=== PATIENT | female | born 1975 | race Caucasian/White ===

== ENCOUNTER 2017-06-12 10:30 | Outpatient (CLI) | payer MEDICAID ==
[2017-06-12 12:58] LABS: BUN - BLOOD UREA NITROGEN 12 mg/dL (6-20); CARBON DIOXIDE - CO2 28 mmol/L (21-32); CHLORIDE 103 mmol/L (101-111); CREATININE 0.6 mg/dL (0.4-1.0); GFR - MDRD 109 (>89); GLUCOSE 110 mg/dL (70-100); POTASSIUM 4.1 mmol/L (3.5-5.0); SODIUM 139 mmol/L (135-145)
[2017-06-12 13:24] LABS: HEMOGLOBIN A1C 0.57 g/dL
== END 2017-06-12 10:31 | disposition home or self-care (01) ==
LOC: LAB.WCP 10:30
PROVIDERS: ATTEND Family Medicine
DX: R73.02 Impaired glucose tolerance (oral) (principal)
CPT/HCPCS: 36415; 80048; 83036; 84443

== ENCOUNTER 2018-11-18 16:29 | Outpatient (CLI) | payer OTHER ==
--- NOTE | 2018-11-19 08:22 | Mammography Report ---
Reason: SCREENING MAMMO Procedure Date: 11/18/2018 Accession Number: [id number] / [id number] Procedure: MATTHIAS - Screening Mammo w/Willi CPT Code: FULL RESULT: EXAM: Screening Mammo w/Willi DATE: 11/18/2018 5:16 PM CLINICAL HISTORY: Screening encounter. Family history of breast cancer in the mother at age 68. TECHNIQUE: Bilateral CC, laterally exaggerated CC, MLO views were obtained. COMPARISON: Baseline mammogram. FINDINGS: The breasts demonstrate diffuse fatty replacement bilaterally. In the right breast at the 6:00 position 7.3 cm deep to the nipple is a gently lobulated well-circumscribed isodense 1.1 cm nodule which requires focused right breast ultrasound for additional characterization. A nodule in the left lower inner breast demonstrates a semilunar shape with fatty hilum on craniocaudal image 14 and MLO image 45 consistent with a typically benign intramammary lymph node. No suspicious masses, clustered microcalcifications, or regions of architectural distortion are identified in the left breast. IMPRESSION: Incomplete examination RECOMMENDATION: Incomplete evaluation requiring focused right breast ultrasound evaluation as described. BIRADS CATEGORY 0: Incomplete examination STANDARD QUALIFYING STATEMENTS: 1. This examination was not reviewed with the aid of Computer-Aided Detection (CAD). 2. A negative or benign imaging report should not preclude biopsy if clinically suspicious findings are present. 3. Dense breasts may obscure an underlying neoplasm. 4. This examination was reviewed with the aid of 3D breast imaging (tomosynthesis).
== END 2018-11-18 16:30 | disposition home or self-care (01) ==
LOC: DI 16:29
DX: Z12.31 Encounter for screening mammogram for malignant neoplasm of breast (principal); R92.8 Other abnormal and inconclusive findings on diagnostic imaging of breast; Z80.3 Family history of malignant neoplasm of breast
CPT/HCPCS: 77063; 77067

== ENCOUNTER 2018-11-19 08:45 | Outpatient (CLI) | payer OTHER ==
[2018-11-19 13:27] LABS: BASOPHILS # (AUTO) 0.1 10^3/uL (0.0-0.1); BASOPHILS % (AUTO) 1.1 %; EOSINOPHILS # (AUTO) 0.5 10^3/uL (0.0-0.7); EOSINOPHILS % (AUTO) 4.2 %; HGB - HEMOGLOBIN 14.4 g/dL (12.0-16.0); LYMPHOCYTES # (AUTO) 2.2 10^3/uL (1.5-3.5); LYMPHOCYTES % (AUTO) 19.8 %; MEAN CORPUSCULAR HEMOGLOBIN 31.2 pg (27.0-31.0); MEAN CORPUSCULAR HGB CONC 33.3 g/dL (32.0-36.0); MEAN CORPUSCULAR VOLUME 93.4 fL (81.0-99.0); MEAN PLATELET VOLUME 7.7 fL (7.9-10.8); MONOCYTES # (AUTO) 0.7 10^3/uL (0.0-1.0); MONOCYTES % (AUTO) 6.5 %; NEUTROPHILS # (AUTO) 7.5 10^3/uL (1.5-6.6); NEUTROPHILS % (AUTO) 68.4 %; PLT - PLATELET COUNT 371 10^3/uL (130-450); RED BLOOD COUNT 4.63 10^6/uL (4.20-5.40)
[2018-11-19 14:17] LABS: ALBUMIN 3.6 g/dL (3.2-5.5); ALKALINE PHOSPHATASE 70 IU/L (42-121); ALT ALANINE AMINOTRANSFERASE 28 IU/L (10-60); AST ASPARTATE AMINOTRANSFERASE 25 IU/L (10-42); BILIRUBIN,TOTAL 0.4 mg/dL (0.2-1.0); BUN - BLOOD UREA NITROGEN 8 mg/dL (6-20); CARBON DIOXIDE - CO2 27 mmol/L (21-32); CHLORIDE 102 mmol/L (101-111); CHOL/HDL RATIO 6.3 (<4.4); CHOLESTEROL 225 mg/dL; CREATININE 0.6 mg/dL (0.4-1.0); GFR - MDRD 108 (>89); GLUCOSE 111 mg/dL (70-100); HDL CHOLESTEROL 36 mg/dL; LDL CHOLESTEROL,CALCULATED 168 mg/dL; LDL/HDL RATIO 4.7 (<4.4); SODIUM 137 mmol/L (135-145); TOTAL PROTEIN 7.3 g/dL (6.7-8.2); VLDL CHOLESTEROL 21 mg/dL
[2018-11-19 15:28] LABS: HB2 TOTAL 15.5 g/dL; HEMOGLOBIN A1C 0.61 g/dL; HEMOGLOBIN A1C % 5.8 % (4.6-6.2)
== END 2018-11-19 23:59 | disposition home or self-care (01) ==
LOC: LAB.WCP 08:45
PROVIDERS: ATTEND Nurse Practitioner
DX: R73.02 Impaired glucose tolerance (oral) (principal); Z00.00 Encounter for general adult medical examination without abnormal findings; E78.5 Hyperlipidemia, unspecified; M35.3 Polymyalgia rheumatica
CPT/HCPCS: 36415; 80053; 80061; 83036; 83721; 84443; 85025; 85651; 86140

== ENCOUNTER 2018-12-21 08:51 | Outpatient (CLI) | payer OTHER ==
--- NOTE | 2018-12-21 10:22 | Ultrasound Report ---
Reason: ABN MAMMO - RT BREAST SPEC VIEW US Procedure Date: 12/21/2018 Accession Number: [id number] / [id number] Procedure: US - Breast Unilateral Limited CPT Code: FULL RESULT: EXAM: Breast Unilateral Limited DATE: 12/21/2018 9:48 AM CLINICAL HISTORY: ABN MAMMO - RT BREAST SPEC VIEW US COMPARISON: 11/18/2018. TECHNIQUE: Targeted ultrasound was performed of the right breast in the area of clinical concern at 6 o'clock and 4 cm distance from the nipple. Color Doppler was employed as appropriate. FINDINGS: Corresponding to the mammographic finding is a 1.1 cm cluster of typically benign appearing cysts which are wider than tall, demonstrate increased through transmission and no solid component or internal vascularity by color Doppler, concordant finding. IMPRESSION: Benign findings RECOMMENDATION: Recommend routine annual Screening mammography unless otherwise clinically indicated. BIRADS CATEGORY 2: Benign findings RADIA
== END 2018-12-21 08:52 | disposition home or self-care (01) ==
LOC: DI 08:51
PROVIDERS: ATTEND Nurse Practitioner
DX: N60.11 Diffuse cystic mastopathy of right breast (principal)
CPT/HCPCS: 76642

== ENCOUNTER 2020-05-04 10:35 | Outpatient (CLI) | payer MEDICAID ==
[2020-05-04 11:49] VITALS: BP 148/92
--- NOTE | 2020-05-04 11:49 | SLEEP CARE CONSULTATION ---
Information from patient questionnaire entered by Prerna Vang. I have reviewed and concur with the information entered by Prerna Vang. This document represents the service I personally performed and the decisions made by me, Janessa Davis ARNP. History of Present Illness Service Date and Time: 05/04/2020 1035 Reason for Visit: New patient, -[facility] Chief Complaint: reports: Insomnia, Unrefreshed sleep, Snoring, Excessive daytime sleepiness, Observed pauses in breathing, Fatigue, Frequent awakenings at night Duration of Symptoms: 3 plus years Usual bedtime: about 11 pm Time it takes to fall asleep: about 1 hour Snores at night: Yes Observed to quit breathing while asleep: Yes Sleeps alone due to snoring: No (n/a) Number of times waking at night: 3-4 Reasons for waking at night: reports: Choking, Snoring, Gasping for air, Pain, Bathroom Toss, Turn, or Twitch while sleeping: Yes Recalls having dreams: Yes Usually gets out of bed at: 6-7 am Feels refreshed in the morning: No Morning headache: No Sleepy or fatigued during the day: Yes Ever fallen asleep while driving: No Takes day naps: No Dreams during day naps: No Prior sleep studies: Yes Year and Where: 2005 in [place], [place] and 2008 - Home study with [facility] [employer] Additional HPI information: Patient states she could not get her CPAP machine from [facility], it was a hassle and ultimately was unable to start treatment of her CHIOMA after being diagnosed by a HST in 2016. She then went through a divorce and did not have motivation to continue to try obtaining the CPAP needed. She recently decided to improve her health and has seen her PCP. She was referred for a nutritional consult for education and help with diet/nutrition for weight loss. - Parasomnia Symptoms Ever been unable to move upon waking from sleep: No Ever felt weak in the knees when startled or emotional: No Bothered by creepy, crawly, restless sensations in legs: No Problems with memory or concentration: Yes Subjective Initial [place] Sleepiness Scale score: 19 (in 2016) Current [place] Sleepiness Scale score: 18 Past Medical History Past Medical History: reports: Claustrophobia, Anxiety, Asthma. 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 Patient is and lives in [place]. Have you smoked in the past 12 months: Yes Cigarettes per day (20/pack): 4 (trying to quit) Years of smokin Smoking Pack Years: 4.0 Alcohol use: Yes Alcohol amount and frequency: 2 glasses on the weekends Caffeine use: Yes Caffeine amount and frequency: 5 shot espresso Family History Family history of sleep disordered breathing: Yes (mother) Family Hx Sleep Apnea: Mother: Snoring, Sleep apnea - Treated, Father: Snoring, Sibling: Snoring Allergies and Home Medications Known drug allergies: Yes (penicillins) Home medication list reviewed: Yes (advair, albuterol, occasional ibuprofen, tried CBD oil for hip joint pain) Review of Systems Review of systems same as previous: Yes (stomach ulcers, treated for bleeding ulcers in hospital 2 yrs ago) Weight gain over past 5 years: 150 Cardiovascular: reports: leg or foot swelling, have to sleep sitting up. denies: high blood pressure, palpitations, chest pain, irregular heart rate or pulse Respiratory: reports: shortness of breath, wheeze, sputum production, chronic cough Gastrointestinal: reports: abdominal pain. denies: heartburn, difficulty swallowing Urinary: reports: incontinence, frequency, urgency Neurological: reports: gait or balance problems. denies: headaches, seizure, head trauma, disorientation Psychiatric: reports: anxiety. denies: Attention Deficit Hyperactivity, depression, mood disorder Ear/Nose/Throat: reports: dry mouth/throat (gets better through the day), hoarseness, wisdom teeth removed. denies: nasal congestion, sinus problems, nose bleeds, injury to nose, tonsillectomy Endocrine: reports: sluggishness, too hot or cold, excessive thirst, increased appetite, increased urination, unexplained weakness. denies: thyroid disease, history of goiter Musculoskeletal: reports: joint pain, neck pain, back pain, joint swelling, muscle pain or cramping, mobility problems Immunologic: reports: rash, itching, allergies to food or environment, other (cats) Physical Exam Blood Pressure: 148/92 Cuff size: large Heart Rate: 92 O2 Saturation: 98 Height: 5 ft 2 in Weight: 344 lb 3.2 oz Body Mass Index: 62.9 BMI Classification: Morbidly Obese Neck circumference: 18.5 HEENT: No craniofacial malformation Nostrils: patent to airflow Turbinates: swollen Septum: midline Mouth and throat: normal Soft palate: normal Hard palate: normal Uvula: normal Uvula visualization: 25% Mallampati Class III Tongue: enlarged in size with teeth bragg on lateral edges Tonsils: 2+ Chin and jaw: normal size and position Neck: normal w/o lymphadenopathy or thyromegaly Heart: regular rate and rhythm Lungs: clear bilaterally Impression and Plan 1. Obstructive Sleep Apnea-Hypopnea Syndrome, as previously diagnosed. She has not followed through with CPAP treatment in 2016 because she was unable to obtain CPAP machine or supplies and then due to personal stressors did not pursue treatment. She continues to have loud and irregular snoring, observed cessation of breath while asleep, gasping or choking in sleep, frequent awakening during the night, unrefreshed sleep, cognitive impairment is mostly seen with not remembering simple words, and excessive daytime sleepiness. Obesit y/excess weight is a common predisposing factor for obstructive sleep apnea- hypopnea syndrome. 2. Morbid obesity. Patient has gained 150 pound of weight in last 5 years. Currently patients BMI is 55.1 obesity class . Obesity increases the risk of apnea, CPAP pressure requirements and overall health risks especially cardiovascular and diabetes. Thus patient is advised to continue with her renew ed efforts to lose weight. Her referral for a nutrition consultation can be helpful in achieving optimal weight loss goals. The BMI chart was reviewed. Patient encouraged to discuss their weight loss goals with their PCP. Her January 2016 HST showed AHI 7.1 with ayala oxygen of 77%. Previous [place] results was 19. She did not follow through with treatment in 2016 and we will need to obtain another sleep study to verify diagnosis and satisfy insurance requirements. The pathophysiology of obstructive sleep apnea-hypopnea syndrome was discussed with the patient and health risks of cardiovascular and cerebrovascular disease if not treated. AASM brochure for obstructive sleep apnea-hypopnea syndrome given and reviewed. Risks of drowsy driving discussed in detail and patient advised to avoid long distance driving and to snout puller at the first sign of drowsiness. Patient agreed to plan. * Schedule HST polysomnography and return in 1-2 weeks after the study to discuss result and initiate therapy. * Avoid long distance driving or driving when feeling sleepy. * Avoid alcohol, sedative and muscle relaxant around bedtime. * Continue efforts to lose weight. * Review instructions provided by trained office staff on how to prepare for the sleep study. * Return for follow-up after sleep study completed. Visit Type: In Office Provider Statement: I spent 100% of the Face to Face Visit with the patient with greater than 50% spent counseling the patient and coordination of care.
== END 2020-05-04 10:36 | disposition home or self-care (01) ==
LOC: SC 10:35
PROVIDERS: ATTEND Nurse Practitioner Family
DX: G47.33 Obstructive sleep apnea (adult) (pediatric) (principal); E66.01 Morbid (severe) obesity due to excess calories; Z68.43 Body mass index [BMI] 50.0-59.9, adult
CPT/HCPCS: 99204; 99212

== ENCOUNTER 2020-06-01 11:13 | Outpatient (CLI) | payer MEDICAID ==
--- NOTE | 2020-06-01 11:46 | SLEEP CARE CONSULTATION ---
Information from patient questionnaire entered by Prerna Vang. I have reviewed and concur with the information entered by Prerna Vang. This document represents the service I personally performed and the decisions made by , Janessa Davis ARNP. History of Present Illness Service Date and Time: 06/01/2020 1113 Initial [place] Sleepiness Scale score: 19 (in 2016) Current [place] Sleepiness Scale score: 18 Additional HPI information: SONIA AC returns for follow up and results of the recently performed home sleep study. She was found to have moderate obstructive sleep apnea with an AHI of 21.6 and ayala oxygen saturation of 50%. Her supine AHI was 5.0 and her non-supine AHI was 27.2. I explained the pathophysiology behind obstructive sleep apnea. We then spent quite a bit of time discussing different treatment options. For mild obstructive sleep apnea, surgery and oral appliance are alternatives to nasal CPAP therapy but in moderate or severe cases, nasal CPAP is the most effective and reliable treatment. I reviewed the impact of weight changes on sleep apnea and strongly recommended losing weight. After some discussion, the patient opted to go with the nasal CPAP therapy. Nasal autoCPAP set at 4-15 cmH20 will be ordered with rationale explained. A manual titration study will be ordered if unable to find optimal pressure with office adjustments. I explained how CPAP machine works with sample devices [employer] Dreamstation and [employer] [id number] and what to expect when using the machine. Using CPAP every night in order to get used to it was emphasized. Patient advised to put CPAP mask on before getting into bed so as not to fall asleep without CPAP. To assist acclimation to CPAP use, it could also be used for a short time during day while reading or watching TV. The patient was in structed to call the CPAP supplier to discuss any mechanical problem that may occur. If the mask given is uncomfortable or is difficult to keep on through the night even with adjustment, contact the CPAP supplier as many will replace with another mask style if notified before 30 days. If snoring or perceives is not getting enough air or too much air from the machine, notify this office. AASM patient education PAP tips and Non Pap treatment pamphlets reviewed and given to patient. Patient counseled not drink alcohol less than 4 hours before bedtime as it can increase snoring and apnea. Patient was cautioned about risks of drowsy driving until sleepiness symptoms resolve. Patient denies drowsy driving. Sleep Study - Results Type of Sleep Study: Home sleep study Polysomnography/Home Sleep Study results: SLEEP TIME AND EFFICIENCY: The sleep study recording began at 11:17:43 PM and ended at 06:38:12 AM. Total recording time was 440.5 minutes. The total sleep time was 383.0 minutes. The sleep efficiency was 86.9 percent. The patient spent 96.2 minutes supine, and spent 286.8 minutes non-supine. The patients own estimate of sleep time was 7.30 hours. RESPIRATORY DATA: The AHI in this report is indexed to sleep time based on actigraphy. The AASM defines this as VADIM. The AHI on this type 3 Home Sleep Study may understate the AHI determined on a type 1 or 2 study, since EEG is not monitored resulting in the inability to score non-desaturating hypopneas. Based on 4% Calculation: The AHI4% calculation of 21.6 per hour of recording time was based on a total of 46 scored apneas and 92 scored hypopneas with 4% desaturations. Supine AHI4%: 5.0 per hour. Non-supine AHI4%: 27.2 per hour. Oxygen Summary: Patient's baseline O2 saturation was 90.1 %. The patient spent 265.9 minutes at an oxygen saturation less than 90%, and 76.5 minutes less than 85%. The desaturation index was 21.0 events per hour sleep time. The lowest saturation was 50.0 %. SNORING: The percent of the study time spent snoring was 1.6 %. The Snoring Count was 208 . The Snoring Index was PULSE RATE REVIEW: The mean heart rate was 85 beats per minute. The rate ranged from a low of 29 to a high of 240 beats per minute. DIAGNOSIS CODE: Moderate obstructive sleep apnea G47.33, occurring independently of sleep position. Moderate desaturations were noted. Allergies and Home Medications Drug allergies reviewed: Yes (penicillins) Home medication list reviewed: Yes (no changes) Review of Systems Review of systems same as previous: Yes (no changes) Physical Exam Heart Rate: 99 O2 Saturation: 95 Height: 5 ft 2 in Weight: 342 lb Body Mass Index: 62.5 BMI Classification: Morbidly Obese Impression and Plan 1. Obstructive Sleep Apnea-Hypopnea Syndrome, moderate, with lowest oxygen saturation of 50% and baseline of 90.1% His average AHI was 21.6 with supine AHI 5.0 and non-supine 27.2. Obviously this is the cause of the patients symptoms of unrefreshed sleep, snoring, frequent night awakenings, observed pauses of breathing while asleep, fatigue and excessive daytime sleepiness. Her AHI was worse non-supine. Positive pressure therapy could benefit her anxiety and asthma as well as reduce risk for hypertension, cardiac disease, cerebrovascular disease, diabetes and depression. As mentioned above, the patient will be started on nasal autoCPAP therapy with pressure set at 4-15 cmH2O. A manual titration study will be completed if unable to find optimal treatment pressure with office adjustments. Compliance guidelines also reviewed. A copy of compliance guidelines will be given for reference at check out. Because the apnea is more severe non-supine, I instructed her to avoid sleeping non-supine until able to start CPAP use. Patients current BMI is 62.9. Obesity increases the risk of apnea, CPAP pressure requirements and overall health risks es pecially cardiovascular and diabetes. Thus patient is advised to lose weight. * Nasal auto CPAP therapy, pressure at 4-15 cm H2O. * Attempt to lose weight. * Avoid alcohol consumption near bedtime. * Avoid non-supine sleep until using CPAP. * The patient is again cautioned about driving until sleepiness completely resolves. * Return one month after CPAP obtained. I will assess response to therapy and compliance at that time. Visit Type: In Office Time Spent with Patient (minutes): 16 Provider Statement: I spent 100% of the Face to Face Visit with the patient with greater than 50% spent counseling the patient and coordination of care.
== END 2020-06-01 11:14 | disposition home or self-care (01) ==
LOC: SC 11:13
PROVIDERS: ATTEND Nurse Practitioner Family
DX: G47.33 Obstructive sleep apnea (adult) (pediatric) (principal); E66.01 Morbid (severe) obesity due to excess calories; Z68.44 Body mass index [BMI] 60.0-69.9, adult
CPT/HCPCS: 99212; 99213

== ENCOUNTER 2021-04-05 17:40 | Emergency (ER) | payer MEDICAID ==
[2021-04-05] MEDS ORDERED: predniSONE 20 MG TABLET PO STA (18:15)
[2021-04-05] MEDS ORDERED: IPRATROPIUM/ALBUTEROL 3 ML NEB INH STA (18:15)
--- NOTE | 2021-04-05 18:25 | ED Physician Documentation ---
PD HPI DYSPNEA - Stated complaint Stated Complaint: SOA,CP - Chief complaint Chief Complaint: Resp - History obtained from History obtained from: Patient - History of Present Illness Timing - onset during: Rest Pain level max: 0 Pain level now: 0 Inciting event(s): No: Out of meds, URI, Allergic rxn/anaphylaxis, Exercise, Exposure (ie smoke), FB / choking, Immobilization/travel, Emotional event Worsened by: Exertion, Coughing Associated symptoms: Cough, Wheezing. No: Fever, Hemoptysis, Chest pain / discomfort, Palpitations, Diaphoresis, Bilateral edema, Unilateral edema, Anxiety Recently seen: Not recently seen - Additional information Additional information: Patient is a 45-year-old female with a longstanding history of asthma. She states that over the past 3 to 4 days she has had increased difficulty breathing. No fevers. No chills. Dry cough. She states her inhalers are not helping at home. Worse with exertion or coughing. Nothing makes it better Review of Systems Constitutional: denies: Fever, Chills Nose: denies: Rhinorrhea / runny nose, Congestion Throat: denies: Sore throat Respiratory: reports: Dyspnea, Cough, Wheezing. denies: Hemoptysis GI: denies: Abdominal Pain, Nausea, Vomiting, Diarrhea : denies: Dysuria, Frequency Skin: denies: Rash Musculoskeletal: denies: Neck pain, Back pain Neurologic: denies: Headache PD PAST MEDICAL HISTORY - Past Medical History Past Medical History: Yes Cardiovascular: None Respiratory: Asthma Endocrine/Autoimmune: None GI: None ASSISTANT CLINICAL DIRECTOR: None : None HEENT: None Psych: None Musculoskeletal: None Derm: None - Past Surgical History Past Surgical History: Yes General: Cholecystectomy - Present Medications Home Medications: Ambulatory Orders Medication Instructions Recorded Confirmed hydroCHLOROthiazide [Hydrodiuril] 12.5 mg PO DAILY 07/30/16 07/30/16 Pantoprazole [Protonix] 40 mg PO BID #120 tablet 07/31/16 Sucralfate 1 gm PO QID #120 tablet 07/31/16 Benzonatate [Tessalon Perle] 100 mg PO TID PRN #20 capsule 08/28/16 predniSONE [Prednisone] 40 mg PO DAILY 5 Days tablet 08/28/16 predniSONE [Deltasone] 10 mg PO [id number] #42 tab 04/05/21 - Allergies Allergies/Adverse Reactions: Allergies Allergy/AdvReac Type Severity Reaction Status Date / Time Penicillins AdvReac Nausea Verified 04/05/21 17:53 - Social History Does the pt smoke?: Yes Smoking Status: Current every day smoker Does the pt drink ETOH?: Yes ETOH Use: Wine Does the pt have substance abuse?: No - Immunizations Immunizations are current?: Yes PD ED PE NORMAL - Vitals Vital signs reviewed: Yes - General General: Alert and oriented X 3, No acute distress, Well developed/nourished - HEENT HEENT: PERRL, Moist mucous membranes - Neck Neck: Supple, no meningeal sign - Cardiac Cardiac: RRR, Strong equal pulses - Respiratory Respiratory: No respiratory distress, Other (Diminished breath sounds bilaterally, wheezing) - Abdomen Abdomen: Soft, Non tender, Non distended - Derm Derm: Warm and dry - Extremities Extremities: No calf tenderness / cord - Neuro Neuro: Alert and oriented X 3 - Psych Psych: Normal mood, Normal affect Results - Vitals Vitals: Vital Signs - 24 hr 04/05/21 04/05/21 04/05/21 17:49 18:03 18:41 Temperature 36.5 C Heart Rate 108 H 107 H 74 Respiratory 18 18 20 Rate Blood Pressure 155/80 H 142/101 H O2 Saturation 95 94 04/05/21 19:29 Temperature 36.8 C Heart Rate 100 Respiratory 18 Rate Blood Pressure 144/91 H O2 Saturation 99 Oxygen O2 Source Room air - Rads (name of study) Chest x-ray Radiology: Prelim report reviewed, EMP read contemporaneously, See rad report (Diffuse interstitial prominence with perihilar airway thickening and streaky bibasilar opacities. Findings may represent sequela of inflammatory or infectious process with viral etiology most likely. Reactive airway disease/asthma may have a similar appearance given reported history) PD MEDICAL DECISION MAKING - ED course Complexity details: reviewed results, re-evaluated patient, considered differential, d/w patient ED course: 45-year-old female with what appears to be an asthma exacerbation. No evidence of pneumonia on chest x-ray. Feels much better after steroids and nebulizer treatment. We will place her on a steroid taper for home. No indication for antibiotics. Patient is well-appearing, nontoxic. Afebrile. No hypoxia. No respiratory distress. Patient counseled regarding signs and symptoms for which I believe and urgent re-evaluation would be necessary. Patient with good understanding of and agreement to plan and is comfortable going home at this time This document was made in part using voice recognition software. While efforts are made to proofread this document, sound alike and grammatical errors may o ccur. Departure - Departure Disposition: Home, Self Care Clinical Impression: Asthma exacerbation Qualifiers: Asthma severity: unspecified severity Asthma persistence: unspecified Qualified Code(s): J45.901 - Unspecified asthma with (acute) exacerbation Condition: Good Instructions: ED Reactive Airway Disease Follow-Up: Yamileth Craig PA-C [Primary Care Provider] - As Needed Prescriptions: predniSONE [Deltasone] 10 mg PO [id number] #42 tab Comments: Use the steroids as prescribed. Continue your inhalers at home. Return if you worsen. Follow-up with your doctor for further care. You can also discuss with your doctor obtaining a nebulizer machine. Discharge Date/Time: 04/05/21 19:35
--- NOTE | 2021-04-05 18:44 | XRAY Report ---
PROCEDURE: Chest 2 View X-Ray INDICATIONS: cough TECHNIQUE: 2 view(s) of the chest. COMPARISON: None. FINDINGS: Surgical changes and devices: None. Lungs and pleura: Diffuse interstitial prominence. Streaky bibasilar opacities more pronounced on the left. Mild perihilar airway thickening. No focal consolidation. No pleural effusion or pneumothorax. Mediastinum: Mediastinal contours are normal. Heart size is normal. Bones and chest wall: No suspicious bony abnormalities. Soft tissues appear unremarkable. IMPRESSION: Diffuse interstitial prominence with perihilar airway thickening and streaky bibasilar o pacities. Findings may represent sequela of inflammatory or infectious process with viral etiology mo st likely. Reactive airway disease/asthma may have a similar appearance given reported history. Recommend follow-up chest radiograph 4-6 weeks after treatment to document resolution of findings and /or return to baseline exam. Reviewed by: Hermilo Marinelli MD on 04/05/2021 6:43 PM PDT Approved by: Hermilo Marinelli MD on 04/05/2021 6:43 PM PDT Station ID: [id number]
[2021-04-05 19:30] VITALS: BP 144/91
== END 2021-04-05 19:35 | disposition home or self-care (01) ==
LOC: ED 17:40
DX: J45.901 Unspecified asthma with (acute) exacerbation (principal); F17.200 Nicotine dependence, unspecified, uncomplicated
CPT/HCPCS: 71046; 94150; 94640; 94664; 99283; 99284; J7512

== ENCOUNTER 2021-09-03 10:52 | Outpatient (CLI) | payer MEDICAID ==
[2021-09-03 18:23] LABS: BASOPHILS # (AUTO) 0.1 10^3/uL (0.0-0.1); BASOPHILS % (AUTO) 0.7 %; EOSINOPHILS # (AUTO) 0.2 10^3/uL (0.0-0.7); HGB - HEMOGLOBIN 12.8 g/dL (12.0-16.0); LYMPHOCYTES # (AUTO) 2.3 10^3/uL (1.5-3.5); LYMPHOCYTES % (AUTO) 19.1 %; MEAN CORPUSCULAR HEMOGLOBIN 28.8 pg (27.0-31.0); MEAN CORPUSCULAR HGB CONC 29.8 g/dL (32.0-36.0); MEAN CORPUSCULAR VOLUME 96.6 fL (81.0-99.0); MEAN PLATELET VOLUME 9.8 fL (7.9-10.8); MONOCYTES # (AUTO) 0.6 10^3/uL (0.0-1.0); MONOCYTES % (AUTO) 4.5 %; NEUTROPHILS # (AUTO) 8.9 10^3/uL (1.5-6.6); NEUTROPHILS % (AUTO) 72.9 %; PLT - PLATELET COUNT 404 10^3/uL (130-450); RED BLOOD COUNT 4.45 10^6/uL (4.20-5.40); RED CELL DISTRIBUTION WIDTH 13.8 % (12.0-15.0); WHITE BLOOD COUNT 12.3 x10^3/uL (4.8-10.8)
[2021-09-03 18:38] LABS: CREATININE,URINE 142.9 mg/dL; MICROALBUM/CREATININE RATIO,UR 65.1 ug/mg (<30.0); MICROALBUMIN,URINE 9.3 mg/dL (0-300.0)
[2021-09-03 18:57] LABS: THYROID STIMULATING HORMONE 2.71 uIU/mL (0.34-5.60)
[2021-09-03 19:00] LABS: ALBUMIN 3.6 g/dL (3.2-5.5); ALBUMIN/GLOBULIN RATIO 0.9 (1.0-2.2); ALKALINE PHOSPHATASE 77 IU/L (42-121); ALT ALANINE AMINOTRANSFERASE 20 IU/L (10-60); AST ASPARTATE AMINOTRANSFERASE 18 IU/L (10-42); BILIRUBIN,TOTAL 0.4 mg/dL (0.2-1.0); BUN - BLOOD UREA NITROGEN 11 mg/dL (6-20); CALCIUM 9.2 mg/dL (8.5-10.3); CARBON DIOXIDE - CO2 29 mmol/L (21-32); CHLORIDE 102 mmol/L (101-111); CHOL/HDL RATIO 5.1 (<4.4); CHOLESTEROL 218 mg/dL; CREATININE 0.6 mg/dL (0.4-1.0); GFR - MDRD 107 (>89); GLUCOSE 140 mg/dL (70-100); HDL CHOLESTEROL 43 mg/dL; LDL CHOLESTEROL,CALCULATED 152 mg/dL; LDL/HDL RATIO 3.5 (<4.4); POTASSIUM 4.1 mmol/L (3.5-5.0); SODIUM 138 mmol/L (135-145); TOTAL PROTEIN 7.8 g/dL (6.7-8.2); TRIGLYCERIDES 113 mg/dL; VLDL CHOLESTEROL 23 mg/dL
[2021-09-03 20:25] LABS: BILIRUBIN,URINE NEGATIVE (NEGATIVE); GLUCOSE, URINE (UA) NEGATIVE (NEGATIVE); KETONES,URINE (UA) NEGATIVE (NEGATIVE); LEUKOCYTE ESTERASE, URINE NEGATIVE (NEGATIVE); NITRITE,URINE NEGATIVE (NEGATIVE); OCCULT BLOOD,URINE TRACE-INTA (NEGATIVE); PROTEIN,URINE NEGATIVE (NEGATIVE); UROBILINOGEN,URINE 0.2 (NORMAL) E.U./dL (NORMAL)
[2021-09-03 20:28] LABS: AMORPHOUS SEDIMENT,UR Rare /LPF; BACTERIA,URINE None Seen /HPF (None Seen); CLARITY,URINE HAZY (CLEAR); RBC,URINE None Seen /HPF (0-5); SQUAMOUS EPITHELIAL CELL,UR NONE SEEN (<= Few); WBC,URINE 0-3 /HPF (0-5)
[2021-09-03 21:36] LABS: ESTIMATED AVERAGE GLUCOSE 126 mg/dL (70-100)
== END 2021-09-03 23:59 | disposition home or self-care (01) ==
LOC: LAB.WCP 10:52
PROVIDERS: ATTEND Nurse Practitioner
DX: I10 Essential (primary) hypertension (principal); E78.5 Hyperlipidemia, unspecified; R73.9 Hyperglycemia, unspecified; R53.83 Other fatigue
CPT/HCPCS: 36415; 80053; 80061; 81001; 82043; 82570; 83036; 83721; 84443; 85025; 87086

== ENCOUNTER 2023-07-21 11:19 | Outpatient (CLI) | payer MEDICAID ==
[2023-07-21 18:02] LABS: BASOPHILS # (AUTO) 0.1 10^3/uL (0.0-0.1); BASOPHILS % (AUTO) 0.8 %; EOSINOPHILS # (AUTO) 0.2 10^3/uL (0.0-0.7); EOSINOPHILS % (AUTO) 1.6 %; HCT - HEMATOCRIT 38.8 % (37.0-47.0); HGB - HEMOGLOBIN 11.3 g/dL (12.0-16.0); LYMPHOCYTES # (AUTO) 2.5 10^3/uL (1.5-3.5); LYMPHOCYTES % (AUTO) 25.4 %; MEAN CORPUSCULAR HEMOGLOBIN 23.5 pg (27.0-31.0); MEAN CORPUSCULAR HGB CONC 29.1 g/dL (32.0-36.0); MEAN CORPUSCULAR VOLUME 80.7 fL (81.0-99.0); MEAN PLATELET VOLUME 9.4 fL (7.9-10.8); MONOCYTES # (AUTO) 0.6 10^3/uL (0.0-1.0); MONOCYTES % (AUTO) 6.6 %; NEUTROPHILS # (AUTO) 6.3 10^3/uL (1.5-6.6); NEUTROPHILS % (AUTO) 65.3 %; PLT - PLATELET COUNT 455 10^3/uL (130-450); RED BLOOD COUNT 4.81 10^6/uL (4.20-5.40); RED CELL DISTRIBUTION WIDTH 18.8 % (12.0-15.0); WHITE BLOOD COUNT 9.6 x10^3/uL (4.8-10.8)
[2023-07-21 19:02] LABS: ALBUMIN 4.2 g/dL (3.2-5.5); ALBUMIN/GLOBULIN RATIO 1.3 (1.0-2.2); ALKALINE PHOSPHATASE 97 IU/L (42-121); ALT ALANINE AMINOTRANSFERASE 16 IU/L (10-60); AST ASPARTATE AMINOTRANSFERASE 15 IU/L (10-42); BILIRUBIN,TOTAL 0.2 mg/dL (0.2-1.0); BUN - BLOOD UREA NITROGEN 10 mg/dL (6-20); CALCIUM 9.6 mg/dL (8.5-10.3); CARBON DIOXIDE - CO2 29 mmol/L (21-32); CHLORIDE 106 mmol/L (101-111); CHOLESTEROL 185 mg/dL; CREATININE 0.7 mg/dL (0.6-1.3); GFR - MDRD 89 (>89); GLUCOSE 81 mg/dL (74-104); HDL CHOLESTEROL 46 mg/dL; LDL CHOLESTEROL,CALCULATED 120 mg/dL; LDL/HDL RATIO 2.6 (<4.4); POTASSIUM 3.8 mmol/L (3.5-4.5); SODIUM 142 mmol/L (135-145); TOTAL PROTEIN 7.5 g/dL (6.4-8.9); TRIGLYCERIDES 95 mg/dL (48-352); VLDL CHOLESTEROL 19 mg/dL
[2023-07-21 19:17] LABS: THYROID STIMULATING HORMONE 1.81 uIU/mL (0.34-5.60)
[2023-07-21 20:02] LABS: ESTIMATED AVERAGE GLUCOSE 120 mg/dL (70-100); HEMOGLOBIN A1c% 5.8 % (4.27-6.07)
== END 2023-07-21 11:20 | disposition home or self-care (01) ==
LOC: LAB.N 11:19
PROVIDERS: ATTEND Nurse Practitioner
DX: I10 Essential (primary) hypertension (principal); E78.5 Hyperlipidemia, unspecified; E66.01 Morbid (severe) obesity due to excess calories; R73.03 Prediabetes
CPT/HCPCS: 36415; 80050; 80061; 83036; 83721

== ENCOUNTER 2023-07-29 14:20 | Outpatient (CLI) | payer MEDICAID ==
--- NOTE | 2023-07-31 14:32 | Mammography Report ---
BILATERAL DIGITAL SCREENING MAMMOGRAM 3D/2D: 07/29/2023 CLINICAL: Routine screening. Mother with breast cancer. Comparison is made to exam dated: 11/18/2018 mammogram - [facility]. There are scattered areas of fibroglandular density in both breasts (category b / 25%-50% glandular t issue). No significant masses, calcifications, or other findings are seen in either breast. There has been no significant interval change. IMPRESSION: NEGATIVE There is no mammographic evidence of malignancy. A 1 year screening mammogram is recommended. Based on the Tyrer Cuzick model (a risk assessment model) the patients lifetime risk is 15.4% and he r 10 year risk is 3.5%. According to the ACR, ACS, and NCCN guidelines, an annual breast MRI exam sherwin ng with mammogram is recommended if the patients lifetime risk is 20% or greater. This exam was interpreted at Station ID: [id number]. NOTE: For mammograms, a report in lay terms will be sent to the patient. Approximately 15% of breast malignancies will not be visualized mammographically. In the management of a palpable breast mass, a negative mammogram must not discourage biopsy of a clinically suspicious lesion. Electronically Signed By: Tiffanie maddox/adrienne:07/30/2023 16:33:13 letter sent: No_Letter ACR BI-RADS Category 1: Negative 3341F PARENCHYMAL PATTERN: (A) - The breast(s) demonstrate(s) scattered fibroglandular densities. BI-RADS CATEGORY: (1) - 1 Mammogram [id number] 1 year screening LATERALITY: (B)
== END 2023-07-29 14:21 | disposition home or self-care (01) ==
LOC: DI 14:20
DX: R92.323 Mammographic fibroglandular density, bilateral breasts (principal); Z12.31 Encounter for screening mammogram for malignant neoplasm of breast; Z80.3 Family history of malignant neoplasm of breast

== ENCOUNTER 2023-07-29 14:24 | Outpatient (CLI) | payer MEDICAID | END 2023-07-29 14:25 | disposition home or self-care (01) | LOC: LAB 14:24 | PROVIDERS: ATTEND Nurse Practitioner | DX: R71.8 Other abnormality of red blood cells (principal) | CPT/HCPCS: 81599; 83020 ==

== ENCOUNTER 2023-07-30 10:23 | Outpatient (CLI) | payer MEDICAID ==
[2023-07-30 11:08] LABS: H. PYLORIS ANTIGEN STL NEGATIVE (Negative)
== END 2023-07-30 10:24 | disposition home or self-care (01) ==
LOC: LAB.R 10:23
PROVIDERS: ATTEND Nurse Practitioner
DX: K21.9 Gastro-esophageal reflux disease without esophagitis (principal)
CPT/HCPCS: 87338

== ENCOUNTER 2023-09-28 16:34 | Emergency (ER) | payer MEDICAID ==
[2023-09-28 16:58] VITALS: BP 149/95; O2SAT 98
--- NOTE | 2023-09-28 17:01 | ED Physician Documentation ---
PD HPI HEENT - Stated complaint Stated Complaint: TATE/NECK PX - Chief complaint Chief Complaint: Heent - History obtained from History obtained from: Patient - Additional information Additional information: She developed gradual onset waxing and waning pain of the right face over the last couple of days. It is worse if she drinks cold water and air on the teeth hurts. She did not have any fevers. No URI symptoms. She thought it might be a tooth, specifically a lower tooth and went to her dentist today and her lower teeth were assessed and not felt to be the source of the pain. 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 : None HEENT: None Psych: None Musculoskeletal: None Derm: None - Past Surgical History Past Surgical History: Yes General: Cholecystectomy - Present Medications Home Medications: Ambulatory Orders Medication Instructions Recorded Confirmed hydroCHLOROthiazide [Hydrodiuril] 12.5 mg PO DAILY 07/30/16 07/30/16 Pantoprazole [Protonix] 40 mg PO BID #120 tablet 07/31/16 Sucralfate 1 gm PO QID #120 tablet 07/31/16 Benzonatate [Tessalon Perle] 100 mg PO TID PRN #20 capsule 08/28/16 predniSONE [Prednisone] 40 mg PO DAILY 5 Days tablet 08/28/16 predniSONE [Deltasone] 10 mg PO [id number] #42 tab 04/05/21 HYDROcod/ACETAM 5/325 [[place] 5/325] 1 - 2 tab PO Q6H PRN #15 tablet 09/28/23 clindamycin HCL [Cleocin HCl] 300 mg PO QID #28 cap 09/28/23 - Allergies Allergies/Adverse Reactions: Allergies Allergy/AdvReac Type Severity Reaction Status Date / Time Penicillins AdvReac Nausea Verified 04/05/21 17:53 - Social History Does the pt smoke?: Yes Smoking Status: Current every day smoker Does the pt drink ETOH?: Yes Does the pt have substance abuse?: No - Immunizations Immunizations are current?: Yes PD ED PE NORMAL - Vitals Vital signs reviewed: Yes - General General: Alert and oriented X 3, No acute distress - HEENT HEENT: PERRL, EOMI, Ears normal, Moist mucous membranes, Pharynx benign, Other (No facial swelling or tenderness. No mastoid tenderness. The last 2 molars on the right maxilla have large fillings in place and both are tender. There is no trismus. No tenderness over the temples. No tenderness over the right neck.) - Neck Neck: Supple, no meningeal sign, No bony TTP - Neuro Neuro: Alert and oriented X 3, Normal speech Results - Vitals Vitals: Vital Signs - 24 hr 09/28/23 16:47 Temperature 37 C Heart Rate 84 Respiratory 18 Rate Blood Pressure 149/95 H O2 Saturation 98 Oxygen O2 Source Room air PD Medical Decision Making - ED course ED course: She felt like she had a tooth ache and she went to the dentist. She states she felt like the tooth ache was on the bottom and her lower teeth were assessed and without evidence of pain or infection. That says on examination it actually seems like it is the maxillary molars that are the source of the pain. There is no otitis media. Departure - Departure Disposition: 01 Home, Self Care Clinical Impression: Pain, dental Condition: Good Record reviewed to determine appropriate education?: Yes Instructions: ED Tooth Pain Prescriptions: clindamycin HCL [Cleocin HCl] 300 mg PO QID #28 cap HYDROcod/ACETAM 5/325 [[place] 5/325] 1 - 2 tab PO Q6H PRN #15 tablet PRN Reason: Pain Comments: As discussed, I believe the pain to be from 1 year. Last 2 molars as opposed to the bottom teeth which your dentist was focused on. I sent a prescription for antibiotics and some pain medication to [facility] [place] in [place]. Follow-up with your dentist, next available appointment and have them assess the top teeth. Return for new or worsening symptoms. I am prescribing a short course of narcotic pain medication for you. These are potentially dangerous and addictive medications that should be used carefully. These medications may constipate you. Take an [id number]-[id number] stool softener (docusate) twice daily with plenty of water while taking these medications. If you go 24 hours without a bowel movement, take [id number] miralax, per package instructions. Do not drink or drive while taking these medications. If you received narcotic or sedating medications while in the emergency department, do not drive for 24 hours. Store this medication in a safe, secure place and out of reach of children. It is a violation of federal law to give or sell this medication to another person or to use in a manner other than prescribed. The ED will not refill narcotic prescriptions, including prescriptions lost or stolen. To dispose of unwanted medications: 1. [facility] provides a drop box for medication in pill form only (no liquids) 8:00 am to 4:30 p.m. Thursday-Thursday in the lobby of the [facility] [place] [facility], [address] [place] [address]. Empty pills into ziplock bag before disposal. Call [phone] for information. 2.[employer] is a free service available to all [facility] residents. Go to [email or web address] Note that many narcotic pain relievers also contain Tylenol/acetaminophen. Please ensure that your total dose of acetaminophen from all sources does not exceed 3 g (3000 mg) per day. Forms: PCP List Discharge Date/Time: 09/28/23 17:20
== END 2023-09-28 17:20 | disposition home or self-care (01) ==
LOC: ED 16:34
DX: K08.89 Other specified disorders of teeth and supporting structures (principal); F17.200 Nicotine dependence, unspecified, uncomplicated
CPT/HCPCS: 99282; 99283

== ENCOUNTER 2023-11-11 07:53 | Outpatient (CLI) | payer MEDICAID ==
--- NOTE | 2023-11-11 09:32 | Ultrasound Report ---
PROCEDURE: Pelvic w/Transvaginal INDICATIONS: MENORRHAGIA TECHNIQUE: Real-time scanning was performed of the pelvic organs, with image documentation. Additional endovagi nal scanning was necessary due to incomplete visualization of the adnexal and endometrial structures by transabdominal scanning. COMPARISON: None. FINDINGS: Uterus: 5.9 x 3.9 x 5 cm. Anteverted positioning. Endometrium measures 10 mm. Heterogeneous echotextu re, with focal thickening is present in the endometrium vascularity. Incidentally noted fibroid measuring 0.9 cm in the subserosal serosal mid posterior region. Ovaries: Nonenlarged ovaries. Color flows are seen. Other: No pathologic free fluid. IMPRESSION: Heterogeneous, focal thickening of the endometrium measuring up to 10 mm with vascularity. Differenti al includes physiologic thickening, polyp, or less likely focal hyperplasia or neoplasm. Consider fol low-up and possible gynecologic consultation depending on clinical context. Reviewed by: Humberto Brito MD on 11/11/2023 9:30 AM [facility] Approved by: Humberto Brito MD on 11/11/2023 9:30 AM PST Station ID: [id number]
== END 2023-11-11 07:54 | disposition home or self-care (01) ==
LOC: DI 07:53
PROVIDERS: ATTEND Obstetrics & Gynecology
DX: N92.4 Excessive bleeding in the premenopausal period (principal); Z68.42 Body mass index [BMI] 45.0-49.9, adult; R93.89 Abnormal findings on diagnostic imaging of other specified body structures

== ENCOUNTER 2023-11-12 06:06 | Day surgery (SDC) | payer MEDICAID ==
[2023-11-12] MEDS ORDERED: LACTATED RINGERS 1,000 ML IV ONE ×2 (06:32→08:11)
[2023-11-12 06:42] LABS: HCG UR QUAL NEGATIVE
--- NOTE | 2023-11-12 07:07 | ANESTHESIA ---
Pre-Anesthesia VS, & Labs - Diagnosis screening exam - Procedure colonoscopy Vital Signs: Temp Pulse Resp BP Pulse Ox O2 Flow Rate 36.3 C L 74 16 106/83 H 97 0 11/12/23 06:33 11/12/23 06:33 11/12/23 06:33 11/12/23 06:33 11/12/23 06:33 11/12/23 06:33 Height: 5 ft 2 in Weight (kg): 120.4 kg Body Mass Index: 48.5 BMI Classification: Morbidly Obese - NPO >8 hours - Is Patient ?: No Home Medications and Allergies hydroCHLOROthiazide [Hydrodiuril] 12.5 mg PO DAILY 07/30/16 Allergies/Adverse Reactions: Allergies Allergy/AdvReac Type Severity Reaction Status Date / Time Penicillins AdvReac Nausea Verified 04/05/21 17:53 Anes History & Medical History - Anesthetic History Anesthesia Complications: reports: No previous complications - Medical History Cardiovascular: reports: Murmur Pulmonary: reports: Asthma Gastrointestinal: reports: GI bleed Urinary: reports: None Neuro: reports: None Musculoskeletal: reports: None Endocrine/Autoimmune: reports: None Blood Disorders: reports: None Skin: reports: Psoriasis Smoking Status: Current every day smoker (approx. 3 cig/day) Psychosocial: reports: Alcohol (1-2 drinks per week), Cannabis (occ.) History of Cancer?: No - Surgical History General: reports: Cholecystectomy, EGD Exam General: Alert, Oriented x3, Cooperative, No acute distress Dental: WNL Mouth Openin Fingerbreadth Neck Mobility: Normal Mallampati classification: III Thyromental Distance: 4-6 cm Mental/Cognitive Status: Alert/Oriented X3, Normal for patient Plan Anesthesia Type: General, Total IV Consent for Procedure(s) Verified and Reviewed: Yes Code Status: Attempt Resuscitation ASA classification: 3-Severe systemic disease Is this case an emergency?: No
[2023-11-12] MEDS ORDERED: PROPOFOL 500 MG/50 ML 500 MG/50 ML VIAL ONE (07:21)
--- NOTE | 2023-11-12 07:22 | HISTORY & PHYSICAL EXAMINATION ---
Chief Complaint - Chief Complaint Chief Complaint: here for colonoscopy History of Present Illness - History Obtained From Records Reviewed: yes History obtained from: pt Exam Limitations: none - History of Present Illness HPI Comment/Other: here for colonoscopy for colon cancer screening. 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 : reports: None HEENT: reports: None Psych: reports: None Musculoskeletal: reports: None Derm: reports: Psoriasis MRSA Hx?: No - Past Surgical History General: reports: Cholecystectomy, EGD Meds/Allgy - Home Medications Home Medications: Ambulatory Orders Medication Instructions Recorded Confirmed hydroCHLOROthiazide [Hydrodiuril] 12.5 mg PO DAILY 07/30/16 07/30/16 Pantoprazole [Protonix] 40 mg PO BID #120 tablet 07/31/16 Sucralfate 1 gm PO QID #120 tablet 07/31/16 Benzonatate [Tessalon Perle] 100 mg PO TID PRN #20 capsule 08/28/16 predniSONE [Prednisone] 40 mg PO DAILY 5 Days tablet 08/28/16 predniSONE [Deltasone] 10 mg PO [id number] #42 tab 04/05/21 HYDROcod/ACETAM 5/325 [[place] 5/325] 1 - 2 tab PO Q6H PRN #15 tablet 09/28/23 clindamycin HCL [Cleocin HCl] 300 mg PO QID #28 cap 09/28/23 - Allergies Allergies/Adverse Reactions: Allergies Allergy/AdvReac Type Severity Reaction Status Date / Time Penicillins AdvReac Nausea Verified 04/05/21 17:53 Review of Systems - Other Findings Other Findings: 10 pt ros as above otherwise unremarkable Exam - Vital Signs Vital Signs: Vital Signs x48h Temp Pulse Resp BP Pulse Ox O2 Flow Rate 11/12/23 06:33 36.3 C L 74 16 106/83 H 97 0 - Physical Exam General Appearance: positive: No acute distress, Alert Eyes Bilateral: positive: PERRL ENT: positive: No signs of dehydration Neck: positive: No JVD, Trachea midline Respiratory: positive: No respiratory distress Cardiovascular: positive: Regular rate & rhythm Abdomen: positive: No distention Rectal: positive: Non-tender Neurologic/Psychiatric: positive: Oriented x3
[2023-11-12] MEDS ORDERED: LIDOCAINE-PF 2% 10 ML AMP SUBQ ONE (07:36)
[2023-11-12] MEDS ORDERED: PROPOFOL 200 MG/20 ML VIAL IVP ONE ×2 (08:02→09:02)
[2023-11-12 08:59] VITALS: BP 130/86; O2SAT 98
--- NOTE | 2023-11-12 11:19 | ANESTHESIA POST OP EVALUATION ---
Anesthesia Post Eval - Post Anesthesia Eval Vitals: Last Vital Signs Temp 36.6 C 11/12/23 08:12 Pulse 72 11/12/23 08:48 Resp 18 11/12/23 08:48 BP 130/86 H 11/12/23 08:48 Pulse Ox 98 11/12/23 08:48 O2 Flow Rate 0 11/12/23 06:33 CV Function Including HR & BP: Stable Pain Control: Satisfactory Nausea & Vomiting: Negative Mental Status: Baseline Respiratory Status: Airway Patent Hydration Status: Satisfactory Anesthesia Complications: None
== END 2023-11-12 06:07 | disposition home or self-care (01) ==
LOC: SDS 06:06
PROVIDERS: ATTEND Surgery
PROC: 0DBL8ZX Excision of Transverse Colon, Via Natural or Artificial Opening Endoscopic, Diagnostic (ICD-10-PCS; 2023-11-12)
PROC: 0DBN8ZX Excision of Sigmoid Colon, Via Natural or Artificial Opening Endoscopic, Diagnostic (ICD-10-PCS; principal; 2023-11-12 07:30)
DX: Z12.11 Encounter for screening for malignant neoplasm of colon (principal); D12.3 Benign neoplasm of transverse colon; D12.7 Benign neoplasm of rectosigmoid junction; K57.30 Diverticulosis of large intestine without perforation or abscess without bleeding; J45.909 Unspecified asthma, uncomplicated; E66.01 Morbid (severe) obesity due to excess calories; F17.210 Nicotine dependence, cigarettes, uncomplicated; Z68.42 Body mass index [BMI] 45.0-49.9, adult
CPT/HCPCS: 45385; 81025; J7120